=== PATIENT | female | born 1970 | race Caucasian/White ===

== ENCOUNTER → 2016-06-24 | Day surgery (SDC) | payer OTHER ==
[~2016-06-24] VITALS: Ht 149.9 cm; Wt 77.1 kg
[~2016-06-24] MED LIST: ASPIRIN CHEWABL81 MG PO; BUPROPION XL150 MG PO; DULOXETINE HCL60 MG PO; FLEXERIL 10 MG10 MG PO; FLOVENT DISKU100 MCG INH; LIPITOR TAB 2020 MG PO; MELATONIN10 M2 PO; METOPROLOL TART50 MG PO; NEURONTIN 300300 MG PO; OMEPRAZOLE20 MG PO; TOPAMAX50 MG PO; TRAMADOL HCL50 MG PO; VENTOLIN INH; [UNRECOGNIZED DRUG - OTHER] PO
== END | disposition home or self-care (01) ==
LOC: OR 07:07
PROVIDERS: Internal Medicine Gastroenterology
PROC: 0DB68ZX Excision of Stomach, Via Natural or Artificial Opening Endoscopic, Diagnostic (ICD-10-PCS; principal; 2016-06-24 10:00)
DX: K29.50 Unspecified chronic gastritis without bleeding (principal); K21.0 Gastro-esophageal reflux disease with esophagitis; I10 Essential (primary) hypertension; J45.909 Unspecified asthma, uncomplicated; K59.09 Other constipation; E66.9 Obesity, unspecified; Z85.43 Personal history of malignant neoplasm of ovary; Z85.42 Personal history of malignant neoplasm of other parts of uterus; Z79.82 Long term (current) use of aspirin; Z79.899 Other long term (current) drug therapy; Z90.710 Acquired absence of both cervix and uterus; Z98.51 Tubal ligation status
CPT/HCPCS: J2250; J3010; J7030

== ENCOUNTER → 2016-10-21 | Outpatient (CLI) | payer OTHER | LOC: KOH-I 09:30 | DX: K29.50 Unspecified chronic gastritis without bleeding (principal); R10.13 Epigastric pain; K21.0 Gastro-esophageal reflux disease with esophagitis; K76.0 Fatty (change of) liver, not elsewhere classified | CPT/HCPCS: 76705 ==